=== PATIENT | female | born 1950 | race Two or more races ===

== ENCOUNTER 2019-03-26 11:57 | Emergency (ER) | payer SELFPAY ==
[~2019-03-26] VITALS: Ht 165.1 cm; Wt 74.8 kg
[2019-03-26 12:15] VITALS: BP 172/83
[2019-03-26] MEDS ORDERED: HYDR-3164 PO (12:28)
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
== END 2019-03-26 12:46 | disposition home or self-care (01) ==
LOC: ER 11:57
DX: K08.89 Other specified disorders of teeth and supporting structures (principal)
CPT/HCPCS: 99283